=== PATIENT | female | born 1960 | race African-American/Black ===

== ENCOUNTER 2016-09-03 13:48 | Emergency (ER) | payer MEDICARE, MEDICAID ==
[~2016-09-03] VITALS: Ht 160 cm; Wt 77.3 kg
[~2016-09-03 13:48] MED LIST: CYCLOBENZAPR10 MG PO; HYZAAR1 TA1 PO; LORTAB 5 OR; MELOXICAM15 MG PO; NAPROSYN500 MG PO; NORVASC2.5 MG PO; TRAMADOL HCL50 MG PO; TRIAMCINOLON0.51 EX; ZEBUTAL 50-325-1 CAP PO
[2016-09-03] MEDS ORDERED: FLEXERIL5 MG PO (14:06)
[2016-09-03] MEDS ORDERED: EC-NAPROSYN500 MG PO (14:17)
[2016-09-03] MEDS ORDERED: LORTAB 5-325 MG1 TAB PO (14:17)
[2016-09-03 14:40] VITALS: BP 136/88
== END 2016-09-03 14:40 | disposition home or self-care (01) ==
LOC: ED 13:48
DX: S43.401A Unspecified sprain of right shoulder joint, initial encounter (principal); I10 Essential (primary) hypertension; W19.XXXA Unspecified fall, initial encounter; Y92.009 Unspecified place in unspecified non-institutional (private) residence as the place of occurrence of the external cause; Z86.12 Personal history of poliomyelitis